=== PATIENT | male | born 1965 | race Caucasian/White ===

== ENCOUNTER 2020-01-12 19:27 | Emergency (ER) | payer OTHER ==
[~2020-01-12] VITALS: Ht 157.5 cm; Wt 54.7 kg
[2020-01-12 20:10] VITALS: Ht 157.5 cm; Wt 54.7 kg
[2020-01-12 21:04] LABS: BASOPHIL % 0.6 % (0-2); PLATELET COUNT 325 x10^3mcL (130-400); RED CELL DISTRIBUTION WIDTH 12.9 % (11.5-14.5)
[2020-01-12 21:22] LABS: CALCIUM 8.2 mg/dL (8.5-10.1); CHLORIDE SERUM 98 mmol/L (98-107); CREATININE SERUM 0.7 mg/dL (0.7-1.3); GFR1 > 60 mL/min; GLUCOSE SERUM 95 mg/dL (74-106); POTASSIUM SERUM 4.3 mmol/L (3.5-5.1); SODIUM SERUM 133 mmol/L (136-145)
[2020-01-12 21:34] LABS: ALBUMIN 3.8 g/dL (3.4-5.0); ALKALINE PHOSPHATASE 84 U/L (46-116); ALT/SGPT 32 U/L (16-63); AST/SGOT 16 U/L (15-37); BILIRUBIN TOTAL 0.2 mg/dL (0.20-1.00); FREE T4 1.08 ng/dL (0.76-1.46); TOTAL PROTEIN, SERUM 6.6 g/dL (6.4-8.2)
[2020-01-12 21:54] LABS: AMPHETAMINE QUAL UR NONE DETECTED (See below)
[2020-01-13 00:43] VITALS: BP 148/89
[2020-01-13 01:12] LABS: microscopic required? NO
[2020-01-13 01:22] LABS: UA SPECIFIC GRAVITY <=1.005 (1.005-1.035); urine erythrocyte NEGATIVE (NEGATIVE)
[2020-01-13 01:46] LABS: T3 TOTAL 0.91 ng/mL
[2020-01-13 02:00] LABS: MAGNESIUM 2.1 mg/dL (1.8-2.4); PHOSPHOROUS 4.2 mg/dL (2.5-4.9)
[2020-01-13 02:07] LABS: CHOLESTEROL/HDL RATIO 2.8
[2020-01-13 02:27] LABS: FREE T4 1.08 ng/dL (0.76-1.46); FREE THYROXINE INDEX 2.4 ug/dL (1.4-4.5); T4(THYROXINE) 6.4 ug/dL (4.7-13.3)
== END 2020-01-13 00:43 | disposition left against medical advice (07) ==
LOC: ED 19:27
PROVIDERS: Emergency Medicine; Student in an Organized Health Care Education/Training Program
DX: H51.23 Internuclear ophthalmoplegia, bilateral (principal); I10 Essential (primary) hypertension
CPT/HCPCS: 36415; 83880; 84439; G0480; J7030; Q9967